=== PATIENT | male | born 1975 | race Caucasian/White ===

== ENCOUNTER → 2017-04-08 | Outpatient (CLI) | payer MEDICARE | LOC: LAB 09:43 → CT 10:00 | DX: Z51.11 Encounter for antineoplastic chemotherapy (principal); C85.83 Other specified types of non-Hodgkin lymphoma, intra-abdominal lymph nodes; D80.1 Nonfamilial hypogammaglobulinemia; Z79.899 Other long term (current) drug therapy; R06.02 Shortness of breath; R61 Generalized hyperhidrosis; R10.9 Unspecified abdominal pain; R74.0 Nonspecific elevation of levels of transaminase and lactic acid dehydrogenase [LDH]; Z03.89 Encounter for observation for other suspected diseases and conditions ruled out; R59.9 Enlarged lymph nodes, unspecified; T45.1X5S Adverse effect of antineoplastic and immunosuppressive drugs, sequela; R91.8 Other nonspecific abnormal finding of lung field | CPT/HCPCS: 36415; 71260; 74160; 82565; 84520; J7050; Q9962 ==